=== PATIENT | female | born 1985 | race Caucasian/White ===

== ENCOUNTER → 2018-12-26 | Outpatient (REF) ==
[~2018-12-26] MED LIST: BACTRIM DS1 TAB OR; CIPRO XR500 MG OR; CIPROFLOXACN500 MG PO; ENDOMETRIN100 MG VA; HYDROCHLOROT25 MG OR; LORTAB 5 OR; LORTAB 5 PO; LORTAB 7.5 OR; NAPROSYN500 MG PO; PHENTERMINE37.5 M1 OR; PRENATA4 PO; TUMS500 MG PO; TYLENOL 500MG TAB PO
== END | disposition home or self-care (01) | DRG 951 ==
LOC: PAGE 09:00
PROVIDERS: ATTEND Nurse Practitioner Family
DX: Z02.1 Encounter for pre-employment examination (principal); Z23 Encounter for immunization

== ENCOUNTER → 2019-01-02 | Outpatient (REF) | END | disposition home or self-care (01) | DRG 951 | LOC: PAGE 09:00 | PROVIDERS: ATTEND Nurse Practitioner Family | DX: Z23 Encounter for immunization (principal) ==